=== PATIENT | female | born 1940 | race Caucasian/White ===

== ENCOUNTER 2018-09-13 20:24 | Emergency (ER) | payer BC, MEDICAID, MEDICARE ==
[~2018-09-13] VITALS: Ht 167.6 cm; Wt 51.3 kg
--- NOTE | 2018-09-13 21:09 | NUR ---
Pt BIB son for evaluation. Son reports progressively worsening confusion with hallucinations today. Recent dx of UTi, currently on macrobid. Pt ambulates in room, unsteady gait, refses to sit, argumentative with family and staff. Aggitated. Waiting for orders.
[2018-09-13] MEDS ORDERED: ZIPRASIDONE 20 MG INJ IM ONE ×2 (21:49→22:00)
--- NOTE | 2018-09-13 22:05 | NUR ---
Pt combative, security and ancillary staff called to asisst. Family at bedside, plan of care discussed. Medicated per MD orders, IM geodon given, resttraints applied to prevent pt from self harm.
--- NOTE | 2018-09-13 22:40 | NUR ---
Lab at bedside for draw. Remains restrained, CMS intact all extremeties, son at bedside, pt reoriented and care explained. vitals stable.
[2018-09-13 22:50] LABS: BASOPHILS # (AUTO) 0.02 x10^3/uL (0-0.1); BASOPHILS % (AUTO) 0 % (0-1); EOSINOPHILS # (AUTO) 0.08 x10^3/uL (0-0.4); EOSINOPHILS % (AUTO) 1 % (1-7); LYMPHOCYTES # (AUTO) 1.61 x10^3/uL (1-3.4); LYMPHOCYTES % (AUTO) 21 % (22-44); MD NO; MEAN CORPUSCULAR HGB CONC 32.9 g/dL (32.4-35.8); MEAN CORPUSCULAR VOLUME 88.4 fL (80-100); MEAN PLATELET VOLUME 9.1 fL (7.4-10.4); MONOCYTES % (AUTO) 8 % (2-9); NEUTROPHILS # (AUTO) 5.32 x10^3/uL (1.8-6.8); NEUTROPHILS % (AUTO) 70 % (42-75); PLATELET COUNT 190 x10^3/uL (130-400); RED BLOOD COUNT 4.42 x10^6/uL (3.82-5.3); RED CELL DISTRIBUTION WIDTH 13.1 % (9.6-15.2)
[2018-09-13 22:55] LABS: ALANINE AMINOTRANSFERASE 20 U/L (12-78); ALBUMIN 3.8 g/dL (3.4-5.0); ANION GAP 6 mmol/L (5-15); CHLORIDE 105 mmol/L (98-107); CREATININE 0.79 mg/dL (0.55-1.02)
[2018-09-13 23:04] LABS: ALKALINE PHOSPHATASE 81 U/L (45-117); BILIRUBIN,TOTAL 0.8 mg/dL (0.2-1.0); TOTAL PROTEIN 7.1 g/dL (6.4-8.2)
[2018-09-13 23:18] LABS: FREE T4 (FREE THYROXINE) 1.21 ng/dL (0.76-1.46)
--- NOTE | 2018-09-13 23:22 | NUR ---
Straight cath complete, specimen sent, pt tolerates well. Son and grandaughter updated on plan of care, in aggreance to testing and treatment at this time. vitals remain stable, pt is calm, remains confused.
[2018-09-13 23:42] LABS: MICROSCOPIC NOT IND
[2018-09-13 23:47] LABS: CULTURE INDICATED? NO
--- NOTE | 2018-09-14 00:08 | NUR ---
CRYSTAL RN: PT IN CT.
--- NOTE | 2018-09-14 00:36 | NUR ---
CRYSTAL RN: REPORT GIVEN TO ANTIONE BENNETT
--- NOTE | 2018-09-14 01:20 | NUR ---
Pt restingon gurney, eyes closed, respirations even and unlabored, vitals stable. Son leaving to go home, grandaughter at bedside. waiting for results.
--- NOTE | 2018-09-14 02:14 | NUR ---
Attempt made to ambulate pt, remains drowsy, confused, unsteady gait. Assisst x 2 into bed, attempts to void, unable to do so. Vitals stable. Family at bedside. MD aware.
--- NOTE | 2018-09-14 03:12 | NUR ---
Pt resting on gurney, PO fluids offered, tolerates well, remains lethargic, denies pain, vitals stable.
--- NOTE | 2018-09-14 04:10 | NUR ---
Pt assissted x 2 to BR, unsteady gait, shuffles, lethargic, remains confused by follows commands. Grandaughter at bedside. Pt denies pain, vitals stable, assissted back to bed. D/c home when returns to baseline.
--- NOTE | 2018-09-14 05:40 | NUR ---
Pt resting on gurney, arouses to touch, vitals stable, remains unsteady, MD aware and updated.
--- NOTE | 2018-09-14 06:40 | NUR ---
Pt ambulated to eli x 2 assisst, remains unsteady w/ shuffling gait, lists toward floor. Assissted back to bed, [facility] at bedside and updated. Pt to d/c when able to ambulate. PO fluids provided.
--- NOTE | 2018-09-14 06:57 | NUR ---
REPORT RECIEVED FROM SABRINA TALBOT. STAFF AMBULATED PATIENT 2 MAX ASSIST, UNSTEADY GATE TO BATHROOM. PATIENT IS DROWSY.
[2018-09-14 08:34] VITALS: BP 151/63
--- NOTE | 2018-09-14 08:34 | NUR ---
PT AMBULATED 2 MAX ASSIST W SHUFFLING GATE TO BATHROOM
--- NOTE | 2018-09-14 08:46 | NUR ---
ED DIET TRAY BROUGHT TO PATIENT. FAMILY ASSISTING W CHANTE.
--- NOTE | 2018-09-14 09:51 | NUR ---
Patient/Caregiver given discharge instructions and they have confirmed that they understand the instructions. Patient DC VIA WHEELCHAIR
[2018-11-20] MEDS ORDERED: LEVO50TA5 PO (15:23)
[2018-11-20] MEDS ORDERED: ATEN25TA PO (15:23)
[2018-11-30] MEDS ORDERED: AMLO2.5T5 PO (12:37)
[2018-11-30] MEDS ORDERED: DOCU50LI26 PO (12:37)
[2018-11-30] MEDS ORDERED: DIVA125C2 PO (12:37)
[2018-11-30] MEDS ORDERED: ACET325T26 PO (12:37)
[2018-11-30] MEDS ORDERED: ASPI-496 PO (16:36)
== END 2018-09-14 09:54 | disposition home or self-care (01) ==
LOC: ED 09-14 00:44
DX: F03.91 Unspecified dementia, unspecified severity, with behavioral disturbance (principal); R44.3 Hallucinations, unspecified; R10.10 Upper abdominal pain, unspecified
CPT/HCPCS: 36415; 70450; 80053; 81003; 83735; 84439; 84443; 85025; 99284